=== PATIENT | male | born 1960 | race Caucasian/White ===

== ENCOUNTER → 2020-09-04 10:02 | Outpatient (CLI) | payer BC, SELFPAY ==
--- NOTE | ~2020-09-04 | XR_ITS ---
EXAMINATION: XR cervical spine 4-5V EXAM DATE: 09/04/2020 10:21 INDICATION: Cervicalgia. TECHNIQUE: Cervical spine frontal, lateral, lateral swimmers, and open-mouth odontoid projections. Submentovertex projection. There are no prior studies for comparison. FINDINGS: There is moderate disc disease at C5-6. Overall moderate cervical arthropathy. There is no evidence of acute cervical fracture. The odontoid process is intact. Pre-dens space is normal. Pr evertebral soft tissue is normal. There are no soft tissue abnormalities identified. The vertebra l bodies are aligned. IMPRESSION: Moderate cervical arthropathy and C5-C6 disc disease. Reviewed, dictated and finalized at location A.
== END ==
PROVIDERS: PCP Family Medicine; Visit Provider Family Medicine
DX: M50.322 Other cervical disc degeneration at C5-C6 level (principal)
CPT/HCPCS: 72050

== ENCOUNTER → 2021-02-03 17:07 | Outpatient (CLI) | payer BC, SELFPAY ==
--- NOTE | ~2021-02-03 | XR_ITS ---
XR knee RT min 4V 02/03/2021 17:27 Indication: Right knee pain Procedure: 4 views right knee Comparison: No prior studies for comparison. Findings: There is severe osteoarthritis of the right knee. Moderate joint effusion. No acute fractur e or traumatic malalignment. No foreign bodies. Impression: 1: Severe osteoarthritis of the right knee with moderate joint effusion. Reviewed, dictated and finalized at location A. Impression: 1: Severe osteoarthritis of the right knee with moderate joint effusion.
== END ==
PROVIDERS: PCP Family Medicine; Visit Provider Family Medicine
DX: M17.11 Unilateral primary osteoarthritis, right knee (principal)
CPT/HCPCS: 73564

== ENCOUNTER 2021-05-14 16:17 | Outpatient (CLI) | payer BC, SELFPAY ==
--- NOTE | ~2021-05-14 | CT_ITS ---
EXAMINATION: CT brain wo con DATE: 05/14/2021 16:39 INDICATION: Amnesia. Memory loss. TECHNIQUE: Computed tomography (CT) of the head was performed without intravenous contrast. The mA wa s adjusted according to patient size. Iterative reconstruction technique was employed. Exam dose: 68 1.00 mGy-cm total exam DLP. COMPARISON: None FINDINGS: There are bilateral carotid siphon internal carotid artery calcifications. There is nonspecific diminished attenuation of the cerebral white matter, likely due to chronic small vessel ischemic changes. No intracranial mass lesion or hemorrhage or cerebrovascular accident is evident. No midline shift or mass effect effect. Normal ventricular size. No subdural or epidural hematoma is detected. There is mild nodular mucoperiosteal thickening of the lower portion of both maxillary sinuses. There is patchy opacification of ethmoid air cells and mild soft tissue thickening of the frontoethmoid ar eas bilaterally. There is minimal mucoperiosteal thickening of the right sphenoid sinus. The mastoid air cells are normally developed and aerated. No fracture or bone destruction of the cranial vault. IMPRESSION: Cerebral atherosclerosis and chronic small vessel ischemic changes of the cerebral white matter No acute intracranial abnormality Paranasal sinus disease Reviewed, dictated and finalized at Location A. Reviewed, dictated and finalized at location A. T OF HOUSE MANAGER
== END 2021-05-14 16:18 | disposition home or self-care (01) ==
LOC: ANHIMG 16:22
PROVIDERS: PCP Family Medicine; Visit Provider Family Medicine
DX: R41.3 Other amnesia (principal); I67.2 Cerebral atherosclerosis
CPT/HCPCS: 70450

== ENCOUNTER 2021-07-30 07:16 | Outpatient (CLI) | payer BC, SELFPAY ==
--- NOTE | ~2021-07-30 | US_ITS ---
EXAMINATION: US carotid duplex BI DATE: 07/30/2021 10:33 INDICATION: Other amnesia. TECHNIQUE: Grayscale, color Doppler, and pulsed Doppler images of the cervical carotid arteries were obtained. The degree of vessel stenosis is placed in one of the following categories: normal, <50%, 5 0-69%, >=70% but less than near-occlusion, near-occlusion, or total occlusion. Note that percent sten osis relative to normal distal artery lumen diameter is indirectly measured from velocity measurement s as described by Kyaw, et al. Radiology 2003; 229:340-346. COMPARISON: None. FINDINGS: RIGHT: The right common carotid artery (CCA) peak systolic velocity (PSV) is 124 cm/s. The right internal ca rotid artery (ICA) PSV is 81 cm/s. The right ICA end-diastolic velocity (EDV) is 15 cm/s. The right I CA/CCA PSV ratio is 0.7. Grayscale and color Doppler images yield an estimate of <50% diameter reduct ion from plaque in the ICA. There is antegrade flow in the right vertebral artery. LEFT: The left CCA PSV is 108 cm/s. The left ICA PSV is 73 cm/s. The left ICA EDV is 22 cm/s. The left ICA/ CCA PSV ratio is 0.7. Grayscale and color Doppler images yield an estimate of <50% diameter reduction from plaque in the ICA. There is antegrade flow in the left vertebral artery. IMPRESSION: 1. <50% stenosis in the right internal carotid artery. 2. <50% stenosis in the left internal carotid artery. Reviewed, dictated and finalized at location A. ER OPERATOR
--- NOTE | 2021-07-30 07:42 | ECHO_ITS ---
Patient Info Name: Gordo Herbert Age: 61 years : 1960 Gender: Male Ht: 74 in Wt: 314 lbs BSA: 2.78 m2 HR: 86 bpm BP: 142 / 84 mmHg Technical Quality: Fair Exam Date: 07/30/2021 7:50 AM Exam Location: [facility] Patient Status: Outpatient Admit Date: 07/30/2021 Staff Ordering Physician: Salty Singh MD Human Capital Manager: Leighann Dinh RDCS Attending Provider: Salty Singh MD Exam Type: CA echo doppler color flow Study Info Indications R41.3 - OTHER AMNESIA Complete two-dimensional, color flow and Doppler transthoracic echocardiogram is performed. Summary 1. Complete two-dimensional, color flow and Doppler transthoracic echocardiogram is performed. 2. Left ventricular chamber dimension is normal. 3. Left ventricular systolic function is normal, estimated at 60-65%. 4. The left ventricular diastolic function is grade II diastolic dysfunction. 5. E/e' 8 is minimally elevated. 6. Global longitudinal strain is abnormal at -14.9%. 7. No pulmonary hypertension, estimated pulmonary arterial systolic pressure is 23 mmHg. Left Ventricle E/e' 8 is minimally elevated. Global longitudinal strain is abnormal at -14.9%. Left ventricular chamber dimension is normal. Left ventricular systolic function is normal, estimated at 60-65%. The left ventricular diastolic function is grade II diastolic dysfunction. Right Ventricle Right ventricular systolic function is normal and with normal TAPSE 2.3 cm. Right ventricular chamber dimension is normal. Left Atria Left atrial chamber dimension is normal. Right Atria Right atrial chamber dimension is normal. Aortic Valve The aortic valve is trileaflet. There is no aortic valve stenosis. There is no aortic valve regurgitation. Pulmonic Valve There is no pulmonic regurgitation. Mitral Valve There is no mitral valve stenosis. There is no mitral valve regurgitation. Tricuspid Valve There is no tricuspid valve regurgitation. No pulmonary hypertension, estimated pulmonary arterial systolic pressure is 23 mmHg. Pericardium/Pleural There is no pericardial effusion. Inferior Vena Cava Normal inferior vena cava with >50% collapse upon inspiration consistent with normal right atrial pressure, 5 mmHg. Aorta The aortic root size at the sinus of Valsalva is normal. Left Ventricular Outflow Tract Name Value Normal LVOT 2D LVOT Diameter 2.0 cm LVOT Doppler LVOT Peak Gradient 7 mmHg LVOT Mean Gradient 4 mmHg LVOT VTI 27 cm LVOT VTI/AV VTI Ratio 0.9 LVOT Stroke Volume 88 ml LVOT CO 6.7 l/min LVOT CI 2.4 l/min/m2 Pulmonic Valve Name Value Normal RVOT Doppler RVOT Peak Gradient
--- NOTE | 2021-07-30 11:15 | WPDNEUROLOGY ---
Neurology EEG Report General Information Date of Study: 07/30/21 TEST eeg DIAGNOSIS Amnesia CONDITION OF RECORDING awake drowsy and sleep EEG NUMBER [id number] CLINICAL HISTORY patient has been experiencing trouble with short-term memory EEG DESCRIPTION basic resting occipital frequency consists of well-organized medium voltage 9 to 10 hertz per 2nd alpha admixed with minimal amount of low-voltage 15 to 18 hertz per 2nd beta posteriorly. Low-voltage beta activity seen diffusely admixed with waxing and waning posterior alpha rhythm during drowsiness. Bihemispheric normal sleep activity seen during sleep. hyperventilation not done. Photic stimulation produced normal drive. Non paroxysmal. Nonfocal. Nonlateralizing. IMPRESSION Normal record
== END 2021-07-30 07:17 | disposition home or self-care (01) ==
PROVIDERS: PCP Family Medicine; Visit Provider Psychiatry & Neurology Neurology
DX: R41.3 Other amnesia (principal); I65.23 Occlusion and stenosis of bilateral carotid arteries
CPT/HCPCS: 93306; 93880; 95816

== ENCOUNTER 2021-10-22 09:29 | Emergency (ER) | payer BC, SELFPAY ==
--- NOTE | ~2021-10-22 | US_ITS ---
EXAMINATION: US venous doppler [facility] DATE: 10/22/2021 10:18 INDICATION: Left lower limb pain and swelling TECHNIQUE: Grayscale ultrasound images without and with compression and Doppler ultrasound images of the left lower extremity veins were obtained. COMPARISON: None. FINDINGS: The visualized portions of left common femoral vein, profunda (deep) femoral vein, femoral vein, popl iteal vein, peroneal veins, posterior tibial veins, lesser saphenous vein and greater saphenous vein outflow are patent. IMPRESSION: 1. No deep venous thrombosis in the left lower limb. Reviewed, dictated and finalized at location B.
[2021-10-22 09:32] VITALS: BP 167/74; PULSE 98; RESP 16; TEMP 35.9; O2SAT 98
--- NOTE | 2021-10-22 09:44 | ED.LOWEXIN ---
HPI - Extremity Injury (Lower) General Chief Complaint: Extremity Injury, Lower Stated Complaint: Left Leg Swelling Time Seen by Provider: 10/22/21 09:36 Source: patient Mode of arrival: ambulatory Limitations: no limitations History of Present Illness HPI Narrative: Patient is a 61-year-old male who presents to the ED with report of left lower leg swelling for the past 2 to 3 days. 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 He wears steel toed boots and noticed increased swelling in his left lower leg and calf 2 to 3 days ago. Swelling has since persisted and traveled into his foot and ankle. No significant swelling in his right lower leg. No known injury. No wounds. He does also report having intermittent shooting pains in his left medial posterior calf. He has not tried anything for his symptoms. He mentions the swelling seems to be worse while up on his feet and improves later in the day when resting. Denies a history of blood clots or congestive heart failure. Does have a history of asthma. Denies any worsening difficulty breathing or chest pain or pain with inspiration. Patient does take an aspirin 81 mg daily. Related Data Home Medications Medication Instructions Recorded Confirmed cyanocobalamin (vitamin B-12) 1,000 mcg PO DAILY 04/17/19 09/13/21 1,000 mcg tablet (Vitamin B-12) multivit,Ca,min-iron 8 mg-folic tablet PO 04/17/19 09/13/21 acid 200 mcg-lycopene 600 mcg tablet (Centrum Men) cholecalciferol (vitamin D3) 125 5,000 unit PO DAILY 09/17/19 09/13/21 mcg (5,000 unit) tablet fexofenadine 180 mg tablet 180 mg PO DAILY PRN Allergy 02/03/21 09/13/21 (Aspen Allergy) aspirin 81 mg tablet,delayed 81 mg PO DAILY 05/15/21 09/13/21 release (Adult Aspirin Regimen) Allergies Allergy/AdvReac Type Severity Reaction Status Date / Time No Known Allergies Allergy Verified 09/13/21 15:52 Review of Systems Review of Systems: CONSTITUTIONAL: Denies fever, chills. CARDIOVASCULAR: Reports left lower extremity swelling, extending to left foot and ankle. Denies chest pain, palpitations. RESPIRATORY: Denies cough, dyspnea, pain with inspiration. SKIN: Denies wounds. MUSCULOSKELETAL: Reports pain in left calf. Denies back pain. All systems reviewed & are unremarkable except as noted in HPI and below [facility] Past Medical History Medical History (Updated 10/22/21 @ 11:09 by Cindi Estrada PA-C) BMI 40.0-44.9, adult Body mass index (bmi) 39.0-39.9, adult (09/11/18) Cerebral atherosclerosis (~05/14/21) Chronic depression Chronic neck pain COVID-19 (~01/09/20) Encounter for prostate cancer screening Essential (primary) hypertension Exposure to COVID-19 virus Mixed hyperlipidemia LDL goal less than 70 05/15/2021 Osteoarthritis of right knee Pharyngitis Poor short-term memory normal EEG 07/30/2021 Right knee pain Severe osteoarthritis with joint effusion on x-ray 02/03/2021 Vitamin B12 deficiency anemia Vitamin D deficiency, unspecified Surgical History Surgical History (Updated 10/22/21 @ 09:56 by Cindi Estrada PA-C) No pertinent past surgical history Family History Family History Grandparent Cerebrovascular accident Sibling Cerebrovascular accident, Onset Age: 62 Father Family history of kidney disease, Onset Age: 84 Social History Social History Smoking status: Never smoker Alcohol intake: current Alcohol use details: occasionally Substance use: never Substance use type: does not use Additional occupation/education comments: [employer] Gender identity (if verbalized by the patient): Male Exam Narrative: GENERAL: Well appearing, obese, non-toxic, in no acute distress. HEAD: Normocephalic, atraumatic. NECK: Supple. No adenopathy, no masses. RESPIRATORY: Airway patent, res
--- NOTE | 2021-10-22 10:20 | PC.NURSE ---
Pt in US, will obtain bloodwork upon return.
--- NOTE | 2021-10-22 10:34 | PC.NURSE ---
pt back from US, resting on stretcher, labs collected.
[2021-10-22 10:35] LABS: Basophils Percent Auto 0.5 % (0.2-1.2); Eosinophils Absolute Auto 0.4 K/mm3 (0-0.3); Eosinophils Percent Auto 7.4 % (0-4.4); Hematocrit 37.3 % (42.0-52.0); Hemoglobin 12.3 g/dL (14.0-18.0); Immature Granulocyte Absolute 0.02 K/mm3 (0.00-0.031); Immature Granulocyte Percent A 0.4 % (0-0.5); Lymphocytes Absolute Auto 1.13 K/mm3 (0.9-3.2); Lymphocytes Percent Auto 19.9 % (18.3-44.2); Mean Corpuscular Hemoglobin 30.4 pg (26-34); Mean Corpuscular Volume 92.1 fl (80-100); Mean Platelet Volume 10.7 fl (7.4-10.4); Monocytes Absolute Auto 0.4 K/mm3 (0.1-0.6); Monocytes Percent Auto 7.4 % (2.6-8.5); Neutrophils Absolute Auto 3.7 K/mm3 (1.3-6.7); Neutrophils Percent Auto 64.4 % (45.5-73.1); Platelet Count Result 188 k/mm3 (150-375); Red Blood Count 4.05 M/mm3 (4.6-6.20); Red Cell Distribution Width 13.9 % (11.5-14.5); White Blood Count 5.7 K/mm3 (4.5-10.0)
[2021-10-22 10:46] LABS: INR 1.1
[2021-10-22 10:47] LABS: Alanine Aminotransferase 24 U/L (6-50); Albumin Level 3.9 g/dL (3.5-5.1); Alkaline Phosphatase 90 U/L (38-126); Anion Gap 5 mmol/L (8-16); Aspartate Amino Transferase 32 U/L (17-59); Bilirubin,Total 0.7 mg/dL (0.2-1.3); Blood Urea Nitrogen 17 mg/dL (9-20); Calcium 8.3 mg/dL (8.4-10.2); Carbon Dioxide 26 mmol/L (22-30); Chloride 106 mmol/L (98-107); Estimated CRCL calculation 113 ml/min; Estimated Glomerular Filt Rate > 60; Glucose 134 mg/dL (65-110); Partial Thromboplastin Time 28.7 SECONDS (22.3-36.8); Sodium 137 mmol/L (137-145)
[2021-10-22 10:56] LABS: NT Pro B Type Natriuretic Pept 74 pg/mL (5-100)
== END 2021-10-22 11:59 | disposition home or self-care (01) ==
PROVIDERS: Physician Assistant; Emergency Provider Emergency Medicine; PCP Family Medicine
DX: M79.89 Other specified soft tissue disorders (principal); J45.909 Unspecified asthma, uncomplicated; I10 Essential (primary) hypertension; E78.2 Mixed hyperlipidemia; M17.11 Unilateral primary osteoarthritis, right knee; D51.9 Vitamin B12 deficiency anemia, unspecified; E55.9 Vitamin D deficiency, unspecified; Z86.16 Personal history of COVID-19; Z79.82 Long term (current) use of aspirin
CPT/HCPCS: 36415; 80053; 83880; 85025; 85610; 85730; 93971; 99284

== ENCOUNTER 2021-12-24 16:28 | Emergency (ER) | payer BC, SELFPAY ==
--- NOTE | 2021-12-24 17:07 | PC.NURSE ---
Pt reports feels fine and is going to go home and will return if worsening or feels bad.
== END 2021-12-24 17:07 | disposition left against medical advice (07) ==
PROVIDERS: PCP Family Medicine
DX: Z53.21 Procedure and treatment not carried out due to patient leaving prior to being seen by health care provider (principal)
CPT/HCPCS: 99199

== ENCOUNTER 2021-12-28 15:30 | Outpatient (RCR) | payer BC, SELFPAY ==
--- NOTE | 2021-11-19 10:22 | PTOPEVAL ---
PHYSICAL THERAPY EVALUATION AND PLAN OF CARE 11-19-21 Thank you for referring Gordo Herbert to [facility]. He is scheduled to be seen for therapy? 2 x/week for 4 weeks. Please review, sign, date and return this plan of care YE. I agree with and certify that the following plan of care is medically necessary. Referring Physician Date Attending Provider: Gabriel Kate MD Outpatient Past Medical History Past Medical History Source of Past Medical History Patient Neurological History Hx Neurological Disorders No Significant History Cardiovascular History Hx Hypertension Yes: meds Respiratory History Hx Asthma Yes: inhaler Gastrointestinal History Hx Gastrointestinal Disorders No Significant History Musculoskeletal History Hx Arthritis Yes: hips and knees Hx Orthopedic Surgery Yes: R rotator cuff repair Endocrine History Hx Endocrine Disorders No Significant History Other History Hx Other Medical Conditions Yes: obesity Evaluation Information Problem Diagnosis edema in R and L ankle Onset September 2021 Prior Level of Function Activity Level (Last 3 Months) Occupation [employer]--physical work, 8 hour shift, stand on concrete Pain Assessment Timing of Pain Assessment Assessment Pain Scale Pain Scale Used Numeric (1 - 10) Self Report Pain Assessment Left Leg(s) Reported Pain Level 0 Pain Description Aching Pain Frequency Chronic,Intermittent Other Pain Description distal medial lower leg, above ankle Lowest Pain Intensity 0 Greatest Pain Intensity 3 Pain Aggravating Factors Walking Interventions Used Interventions Used By Clinicians Education Gross Lower Extremity Range of Motion ankle ROM: R DF 0', PF 40', Comments inversion 25', eversion 15' L DF 0,; PF 40', inversion 20' , eversion 25'- no pain increase with ROM; sitting knee R 0-100'/ L 0-95' supine B hip flexion 95', IR 10', ER 40'; tends to hold LE 's in hip ER position Gross Lower Extremity Strength functional strength testing: - single leg standing R 3/ L 2 seconds- unstable, did not report pain increase- unsteady /balance - standing B PF 8 reps with slight heel lift off floor - sitting: L big toe fl
--- NOTE | 2021-12-03 10:13 | PCPTNOTE ---
Patient called & cancelled scheduled appointment this date due to having to work.
--- NOTE | 2021-12-09 17:30 | PCPTNOTE ---
Patient called & cancelled scheduled appointment for 12/10/21 due to having to work.
--- NOTE | 2021-12-14 15:00 | PCPTNOTE ---
today's appt had to be canceled due to therapist illness.
--- NOTE | 2021-12-16 09:05 | PCPTNOTE ---
pt called and canceled reevaluation due to work schedule; rescheduled for 2 wks out due to availability of appt times for pt
--- NOTE | 2021-12-28 16:02 | PTOPEVAL ---
PHYSICAL THERAPY DISCHARGE REPORT 12-28-21 Refer to the clinical summary below, for his status today, compared to the initial evaluation. The goals were achieved. Discharge PT services. Thank you for referring Gordo Herbert to [facility] Please review, sign, date and return this Discharge report YE. I agree with and certify that the following plan of care is medically necessary. Referring Physician Date Attending Provider: Gabriel Kate MD Subjective Information Gordo reports: had contact Query Text:As Reported By Patient/ dermatitis in L leg from new Family laundry detergent--have 2 more days of steroids left; doing OK with the stocking and no problems wearing it; want to try to go without the stocking Pain Assessment Pain Scale Pain Scale Used Numeric (1 - 10) Self Report Pain Assessment Left Leg(s) Reported Pain Level 0 Lymphedema Evaluation Skin Inspection Location Left Lower Extremity Tissue Texture Normal Lymphedema Stage I Skin Inspection Comment good skin color over L LE with slight redness over anterior raza; no edema over toes and dorsum of foot, --------- to dept with Mediven Plus 20- 30 mmHg compression garment, size V, silicone top band, calf high; indep don/doffing garment; pt reports his leg is staying small and wants to try to go without it; discussed try to go without it and see how his leg responds, using measurements at ankle and calf to assess if changes without the garment; reinforced continue to do leg exercises and self MLD to keep the lymph fluid moving; he voiced and demo understanding; LE Circumferential Measurement Left LE Lymphedema Side Left Metatarsal Heads (cm) 26 Figure 8 of Ankle (cm) 59 8 cm From Bottom of Foot (cm) 28 12 cm From Bottom of Foot (cm) 26 16 cm From Bottom of Foot (cm) 26 20 cm From Bottom of Foot (cm) 28.4 24 cm From Bottom of Foot (cm) 30.2 28 cm From Bottom of Foot (cm) 33.6 32 cm From Bottom of Foot (cm)
== END 2021-12-29 09:58 | disposition home or self-care (01) ==
LOC: ANHPT 15:30
PROVIDERS: PCP Family Medicine; Visit Provider Family Medicine
DX: M25.471 Effusion, right ankle (principal); M25.472 Effusion, left ankle
CPT/HCPCS: 97140; 97162

== ENCOUNTER 2022-01-19 16:23 | Emergency (ER) | payer BC, SELFPAY ==
[2022-01-19 16:27] VITALS: BP 144/63; PULSE 105; RESP 14; TEMP 36.4; O2SAT 99
[2022-01-19 16:49] LABS: Basophils Percent Auto 0.6 % (0.2-1.2); Eosinophils Absolute Auto 0.6 K/mm3 (0-0.3); Eosinophils Percent Auto 8.3 % (0-4.4); Hematocrit 31.4 % (42.0-52.0); Hemoglobin 10.4 g/dL (14.0-18.0); Immature Granulocyte Absolute 0.01 K/mm3 (0.00-0.031); Immature Granulocyte Percent A 0.1 % (0-0.5); Lymphocytes Absolute Auto 1.38 K/mm3 (0.9-3.2); Lymphocytes Percent Auto 19.1 % (18.3-44.2); Mean Corpuscular HGB Conc 33.1 g/dl (32-36); Mean Corpuscular Hemoglobin 30.6 pg (26-34); Mean Corpuscular Volume 92.4 fl (80-100); Monocytes Absolute Auto 0.6 K/mm3 (0.1-0.6); Monocytes Percent Auto 8.6 % (2.6-8.5); Neutrophils Absolute Auto 4.6 K/mm3 (1.3-6.7); Neutrophils Percent Auto 63.3 % (45.5-73.1); Platelet Count Result 257 k/mm3 (150-375); Red Cell Distribution Width 14.5 % (11.5-14.5); White Blood Count 7.2 K/mm3 (4.5-10.0)
[2022-01-19 17:00] LABS: Alanine Aminotransferase 29 U/L (6-50); Albumin Level 4.2 g/dL (3.5-5.1); Alkaline Phosphatase 80 U/L (38-126); Anion Gap 10 mmol/L (8-16); Aspartate Amino Transferase 38 U/L (17-59); Bilirubin,Total 0.5 mg/dL (0.2-1.3); Blood Urea Nitrogen 23 mg/dL (9-20); Calcium 9.2 mg/dL (8.4-10.2); Carbon Dioxide 25 mmol/L (22-30); Chloride 100 mmol/L (98-107); Estimated CRCL calculation 112 ml/min; Estimated Glomerular Filt Rate > 60; Glucose 98 mg/dL (65-110); Potassium 3.9 mmol/L (3.4-5.0); Sodium 135 mmol/L (137-145)
[2022-01-19 17:01] LABS: INR 1.1; Prothrombin Time 13.8 Seconds (11.1-14.7)
[2022-01-19 17:02] LABS: Partial Thromboplastin Time 27.1 SECONDS (22.3-36.8)
[2022-01-19 17:15] VITALS: BP 129/73; PULSE 95; RESP 18; O2SAT 100
--- NOTE | 2022-01-19 17:42 | ED.GIBLEED ---
HPI - GI Bleed General Chief complaint: GI Bleed Stated complaint: black stool Time Seen by Provider: 01/19/22 17:17 Source: patient Mode of arrival: ambulatory Limitations: no limitations History of Present Illness HPI Narrative: 61-year-old male presents today with complaints of 3 days of dark stool. Patient denies any abdominal pain, nausea, vomiting, diarrhea, dizziness, chest pain, palpitations. Patient states sometimes his stomach grumbles then he has a bowel movement is fine. Patient's last colonoscopy was 2 to 3 years ago he states that it was in [place]. Patient recently saw his primary doctor. Related Data Home Medications Medication Instructions Recorded Confirmed cyanocobalamin (vitamin B-12) 1,000 mcg PO DAILY 04/17/19 11/01/21 1,000 mcg tablet (Vitamin B-12) multivit,Ca,min-iron 8 mg-folic tablet PO 04/17/19 11/01/21 acid 200 mcg-lycopene 600 mcg tablet (Centrum Men) cholecalciferol (vitamin D3) 125 5,000 unit PO DAILY 09/17/19 11/01/21 mcg (5,000 unit) tablet fexofenadine 180 mg tablet 180 mg PO DAILY PRN Allergy 02/03/21 11/01/21 (Aspen Allergy) aspirin 81 mg tablet,delayed 81 mg PO DAILY 05/15/21 11/01/21 release (Adult Aspirin Regimen) Allergies Allergy/AdvReac Type Severity Reaction Status Date / Time No Known Allergies Allergy Verified 01/19/22 16:24 Review of Systems Review of Systems: CONSTITUTIONAL: Denies fever, chills, or sweats. EYES: Denies visual changes, redness, or discharge. ENT: Denies rhinorrhea, congestion, sore throat, or otalgia. CARDIOVASCULAR: Denies chest pain, palpitations, or edema. RESPIRATORY: Denies cough or dyspnea. GASTROINTESTINAL: Dark stool. Denies abdominal pain, nausea, vomiting, or diarrhea. GENITOURINARY: Denies dysuria or hematuria. SKIN: Denies rash or itching. MUSCULOSKELETAL: Denies back pain, joint pain, or myalgia. NEUROLOGIC: Denies headache, numbness, dizziness, or weakness. PSYCHIATRIC: Denies anxiety or depression. [facility] Past Medical History Medical History BMI 40.0-44.9, adult Body mass index (bmi) 39.0-39.9, adult (09/11/18) Cerebral atherosclerosis (~05/14/21) Chronic depression Chronic neck pain COVID-19 (~01/09/20) Encounter for prostate cancer screening Essential (primary) hypertension Exposure to COVID-19 virus Mixed hyperlipidemia LDL goal less than 70 05/15/2021 Obesity (BMI 30-39.9) Osteoarthritis of right knee Pharyngitis Poor short-term memory normal EEG 07/30/2021 Right knee pain Severe osteoarthritis with joint effusion on x-ray 02/03/2021 Vitamin B12 deficiency anemia Vitamin D deficiency, unspecified Surgical History Surgical History No pertinent past surgical history Family History Family History Grandparent Cerebrovascular accident Sibling Cerebrovascular accident, Onset Age: 62 Father Family history of kidney disease, Onset Age: 84 Social History Social History Smoking status: Former smoker ( quit smoking 2014.) Alcohol intake: current Alcohol use details: occasionally Substance use: never Substance use type: does not use Additional occupation/education comments: [employer] Gender identity (if verbalized by the patient): Male Exam Narrative: GENERAL: Well-appearing, well-nourished, and in no acute distress. HEAD: Normocephalic, atraumatic. EYES: PERRLA and EOMI. ENT: Nares clear, no rhinorrhea or epistaxis. Mucous membranes moist. Oropharynx without tonsillar hypertrophy exudate or other lesions. Bilateral TMs pearly coker nonbulging NECK: Supple. No adenopathy or masses. No carotid bruits or JVD CHEST: Clear to auscultation. No respiratory distress. No wheezes rales or rhonchi HEART: Regular rate and rhythm. No murmur
[2022-01-19 18:20] VITALS: BP 132/77; PULSE 90; RESP 20; O2SAT 100
== END 2022-01-19 18:25 | disposition home or self-care (01) ==
LOC: ANHED 18:14
PROVIDERS: Emergency Medicine; Emergency Provider Nurse Practitioner Family; PCP Family Medicine
DX: K92.2 Gastrointestinal hemorrhage, unspecified (principal); I10 Essential (primary) hypertension; E78.2 Mixed hyperlipidemia; I67.2 Cerebral atherosclerosis; D51.9 Vitamin B12 deficiency anemia, unspecified; E55.9 Vitamin D deficiency, unspecified; M17.11 Unilateral primary osteoarthritis, right knee; E66.9 Obesity, unspecified; Z68.38 Body mass index [BMI] 38.0-38.9, adult; Z86.16 Personal history of COVID-19; Z79.82 Long term (current) use of aspirin; Z87.891 Personal history of nicotine dependence
CPT/HCPCS: 36415; 80053; 85025; 85610; 85730; 86850; 86900; 86901; 99283

== ENCOUNTER 2022-01-24 00:47 | Day surgery (SDC) | payer BC, SELFPAY ==
[2022-01-21 09:27] VITALS: BMI 36.9
--- NOTE | 2022-01-24 12:11 | PM.HPGS ---
History of Present Illness History of Present Illness Consent: Risks, benefits, and alternatives have been discussed and questions answered. Patient agrees to proceed with procedure. Chief complaint: GI bleed Narrative: Gordo Herbert is a 61 year old male Who had black tarry stools for 3 consecutive days. He presented to the emergency room last week. His hemoglobin, which was 13.6 earlier this month was down to 10.4. He denies abdominal pain or nausea but does sometimes have rumbling in his stomach. Review of Systems Review of Systems: All systems reviewed & are unremarkable except as noted in HPI and below PMFSH Past Medical History Medical History BMI 40.0-44.9, adult Body mass index (bmi) 39.0-39.9, adult (09/11/18) Cerebral atherosclerosis (~05/14/21) Chronic depression Chronic neck pain COVID-19 (~01/09/20) Encounter for prostate cancer screening Essential (primary) hypertension Exposure to COVID-19 virus GI bleeding Mixed hyperlipidemia LDL goal less than 70 05/15/2021 Obesity (BMI 30-39.9) Osteoarthritis of right knee Pharyngitis Poor short-term memory normal EEG 07/30/2021 Right knee pain Severe osteoarthritis with joint effusion on x-ray 02/03/2021 Vitamin B12 deficiency anemia Vitamin D deficiency, unspecified Surgical History Surgical History No pertinent past surgical history Family History Family History Grandparent Cerebrovascular accident Sibling Cerebrovascular accident, Onset Age: 62 Father Family history of kidney disease, Onset Age: 84 Social History Social History Smoking packs per day: 1 Smoking cigarettes per day: 20.0 Years smoked: 37 Smoking pack-years: 37.00 Smoking status: Former smoker Tobacco type: cigarettes Alcohol intake: current Alcohol use details: occasional Substance use: never Substance use type: does not use Living arrangements: with family Additional occupation/education comments: [employer] Gender identity (if verbalized by the patient): Male Spiritual care concerns: No Meds Home Medications and Allergies Home Medications Medication Instructions Recorded Confirmed Type cyanocobalamin (vitamin B-12) 1,000 mcg PO DAILY 04/17/19 01/21/22 History 1,000 mcg tablet (Vitamin B-12) multivit,Ca,min-iron 8 mg-folic 1 tablet PO DAILY 04/17/19 01/21/22 History acid 200 mcg-lycopene 600 mcg tablet (Centrum Men) cholecalciferol (vitamin D3) 125 5,000 unit PO DAILY 09/17/19 01/21/22 History mcg (5,000 unit) tablet budesonide-formoterol HFA 160 2 puff inhalation Q12H #10.2 grams 09/07/20 01/21/22 Rx mcg-4.5 mcg/actuation aerosol inhaler (Symbicort) fexofenadine 180 mg tablet 180 mg PO DAILY PRN Allergy 02/03/21 01/21/22 History (Aspen Allergy) aspirin 81 mg tablet,delayed 81 mg PO DAILY 05/15/21 01/21/22 History release (Adult Aspirin Regimen) atorvastatin 40 mg tablet 40 mg PO DAILY #90 tabs 05/15/21 01/21/22 Rx albuterol sulfate 90 mcg/actuation 2 puff inhalation Q4H PRN 07/07/21 01/21/22 Rx aerosol inhaler (Ventolin HFA) shortness of breath or wheezing #8.5 grams tamsulosin 0.4 mg capsule 0.4 mg PO DAILY #90 caps 07/12/21 01/21/22 Rx escitalopram oxalate 10 mg tablet 10 mg PO . q.h.s. #90 tabs 07/22/21 01/21/22 Rx (Lexapro) lisinopril 10 mg tablet 10 mg PO DAILY #90 tabs 10/27/21 01/21/22 Rx budesonide 0.25 mg/2 mL suspension See Rx Instructions .Route 12/14/21 01/21/22 Rx for nebulization .COMPLEX #120 mL pantoprazole 20 mg tablet,delayed 20 mg PO QAM #30 tabs 01/19/22 01/21/22 Rx release (Protonix) Allergies Allergy/AdvReac Type Severity Reaction Status Date / Time No Known Allergies Allergy Verified 01/24/22 12:13 Exam Const: Ge
[2022-01-24 12:15] VITALS: BP 146/66; PULSE 82; RESP 18; TEMP 36.7; O2SAT 98
[2022-01-24] MEDS: LACTATED RINGERS 1,000 ML 150 ML IV CONT (12:30)
--- NOTE | 2022-01-24 12:45 | WPDANESEPPF ---
Anes - Initial Pre Proc Eval Procedure: Operation Date: 01/24/22 13:30 Proposed Procedures p Esophagogastroduodenoscopy & Colonoscopy - Marcus Dale MD Date/Time: 01/24/22 12:45 Surgeon: Marcus Dale MD Pre Op Diagnosis: GI bleed Patient Data Age: 61 Gender: M Height: 1.91 m Weight: 133.5 kg Last Vital Signs Temp 36.7 C 01/24/22 12:15 Pulse 82 01/24/22 12:15 Resp 18 01/24/22 12:15 BP 146/66 H 01/24/22 12:15 Pulse Ox 98 01/24/22 12:15 O2 Del Method Room Air 01/24/22 12:15 Allergies Allergy/AdvReac Type Severity Reaction Status Date / Time No Known Allergies Allergy Verified 01/24/22 12:13 Home Medications Medication Instructions Recorded Confirmed Type cyanocobalamin (vitamin B-12) 1,000 mcg PO DAILY 04/17/19 01/24/22 History 1,000 mcg tablet (Vitamin B-12) multivit,Ca,min-iron 8 mg-folic 1 tablet PO DAILY 04/17/19 01/24/22 History acid 200 mcg-lycopene 600 mcg tablet (Centrum Men) cholecalciferol (vitamin D3) 125 5,000 unit PO DAILY 09/17/19 01/24/22 History mcg (5,000 unit) tablet budesonide-formoterol HFA 160 2 puff inhalation Q12H #10.2 grams 09/07/20 01/24/22 Rx mcg-4.5 mcg/actuation aerosol inhaler (Symbicort) fexofenadine 180 mg tablet 180 mg PO DAILY PRN Allergy 02/03/21 01/24/22 History (Aspen Allergy) aspirin 81 mg tablet,delayed 81 mg PO DAILY 05/15/21 01/24/22 History release (Adult Aspirin Regimen) atorvastatin 40 mg tablet 40 mg PO DAILY #90 tabs 05/15/21 01/24/22 Rx albuterol sulfate 90 mcg/actuation 2 puff inhalation Q4H PRN 07/07/21 01/24/22 Rx aerosol inhaler (Ventolin HFA) shortness of breath or wheezing #8.5 grams tamsulosin 0.4 mg capsule 0.4 mg PO DAILY #90 caps 07/12/21 01/24/22 Rx escitalopram oxalate 10 mg tablet 10 mg PO . q.h.s. #90 tabs 07/22/21 01/24/22 Rx (Lexapro) lisinopril 10 mg tablet 10 mg PO DAILY #90 tabs 10/27/21 01/24/22 Rx budesonide 0.25 mg/2 mL suspension See Rx Instructions .Route 12/14/21 01/24/22 Rx for nebulization .COMPLEX #120 mL pantoprazole 20 mg tablet,delayed 20 mg PO QAM #30 tabs 01/19/22 01/24/22 Rx release (Protonix) Patient hx anesthesia problems: none Family hx anesthesia problems: none Results Review: All pre-operative results and documents have been reviewed as part of the pre-operative evaluation. [facility] Past Medical History Medical History BMI 40.0-44.9, adult Body mass index (bmi) 39.0-39.9, adult (09/11/18) Cerebral atherosclerosis (~05/14/21) Chronic depression Chronic neck pain COVID-19 (~01/09/20) Encounter for prostate cancer screening Essential (primary) hypertension Exposure to COVID-19 virus GI bleeding Mixed hyperlipidemia LDL goal less than 70 05/15/2021 Obesity (BMI 30-39.9) Osteoarthritis of right knee Pharyngitis Poor short-term memory normal EEG 07/30/2021 Right knee pain Severe osteoarthritis with joint effusion on x-ray 02/03/2021 Vitamin B12 deficiency anemia Vitamin D deficiency, unspecified Surgical History Surgical History No pertinent past surgical history Family History Family History Grandparent Cerebrovascular accident Sibling Cerebrovascular accident, Onset Age: 62 Father Family history of kidney disease, Onset Age: 84 Social History Social History Smoking packs per day: 1 Smoking cigarettes per day: 20.0 Years smoked: 37 Smoking pack-years: 37.00 Smoking status: Former smoker Tobacco type: cigarettes Alcohol intake: current Alcohol use details: occasional Substance use: never Substance use type: does not use Living arrangements: with family Additional occupation/education comments: [employer] Gender identity (if verbalized by the patient): Yuriy
[2022-01-24] MEDS: BENZOCAINE (*SP) 60 ML SPRAY CAN (HURRICAINE) 1 SPRAY MUCOUS MEM (12:53)
--- NOTE | 2022-01-24 13:04 | SUR.OPER ---
egd ended at 1256, colonoscopy start at 1305
[2022-01-24 13:17] VITALS: BP 96/59; PULSE 75; RESP 17; O2SAT 99
[2022-01-24 13:27] VITALS: BP 110/65; PULSE 77; RESP 20; O2SAT 99
[2022-01-24 13:37] VITALS: BP 123/70; PULSE 82; RESP 17; O2SAT 96
== END 2022-01-24 13:53 | disposition home or self-care (01) ==
PROVIDERS: PCP Family Medicine; Visit Provider Internal Medicine Gastroenterology
PROC: 0DJ08ZZ Inspection of Upper Intestinal Tract, Via Natural or Artificial Opening Endoscopic (ICD-10-PCS; CPT 43235; principal; 2022-01-24 13:30)
DX: K92.1 Melena (principal); K57.30 Diverticulosis of large intestine without perforation or abscess without bleeding; K21.9 Gastro-esophageal reflux disease without esophagitis; K26.9 Duodenal ulcer, unspecified as acute or chronic, without hemorrhage or perforation; K29.80 Duodenitis without bleeding; Z79.82 Long term (current) use of aspirin; Z79.51 Long term (current) use of inhaled steroids; Z86.16 Personal history of COVID-19; I10 Essential (primary) hypertension; E78.2 Mixed hyperlipidemia; M19.90 Unspecified osteoarthritis, unspecified site; E55.9 Vitamin D deficiency, unspecified; D51.9 Vitamin B12 deficiency anemia, unspecified; Z87.891 Personal history of nicotine dependence; E66.9 Obesity, unspecified; Z68.36 Body mass index [BMI] 36.0-36.9, adult
CPT/HCPCS: 45378; 43239; 87081; 88305; J2704; J7120

== ENCOUNTER 2022-03-14 01:02 | Day surgery (SDC) | payer BC, SELFPAY ==
[2022-02-24 14:20] VITALS: BMI 38.5
--- NOTE | 2022-02-24 14:21 | PC.NURSE ---
Pt states he went over his health history and medication information before his EGD & Colonoscopy he had 6 weeks ago. States there has been no changes. Went over arrival time/procedure time, NPO after midnight, and medications. Verbalizes understanding. No further questions.
--- NOTE | 2022-03-12 10:07 | PM.HPGS ---
History of Present Illness History of Present Illness Consent: Risks, benefits, and alternatives have been discussed and questions answered. Patient agrees to proceed with procedure. Chief complaint: duodenal ulcer Narrative: Gordo Herbert is a 61 year old male Who is here for follow-up of a duodenal ulcer. Two months ago he was hospitalized with gastrointestinal bleeding. A duodenal ulcer was found. He also was positive for H pylori. He took a 14 day course of triple therapy for that. At that time he also was found have Barretts esophagus. Review of Systems Review of Systems: All systems reviewed & are unremarkable except as noted in HPI and below PMFSH Past Medical History Medical History BMI 40.0-44.9, adult Body mass index (bmi) 39.0-39.9, adult (09/11/18) Cerebral atherosclerosis (~05/14/21) Chronic depression Chronic neck pain COVID-19 (~01/09/20) Duodenal ulcer (01/24/22) EGD on 01/24/2022 with recheck in 6 weeks Duodenitis (01/24/22) Encounter for prostate cancer screening Essential (primary) hypertension Exposure to COVID-19 virus GI bleeding colonoscopy on 01/24/2022 with no evidence of acute bleeding with diverticulosis with no perforation. Recheck in 5 years. Mixed hyperlipidemia LDL goal less than 70 05/15/2021 Nonerosive esophageal reflux disease (01/24/22) EGD on 01/24/2022 with duodenal ulcer and duodenitis and nonerosive reflux disease with recheck EGD in 6 weeks Obesity (BMI 30-39.9) Osteoarthritis of right knee Pharyngitis Poor short-term memory normal EEG 07/30/2021 Right knee pain Severe osteoarthritis with joint effusion on x-ray 02/03/2021 Vitamin B12 deficiency anemia Vitamin D deficiency, unspecified Surgical History Surgical History No pertinent past surgical history Family History Family History Grandparent Cerebrovascular accident Sibling Cerebrovascular accident, Onset Age: 62 Father Family history of kidney disease, Onset Age: 84 Social History Social History Smoking packs per day: 1 Smoking cigarettes per day: 20.0 Years smoked: 37 Smoking pack-years: 37.00 Smoking status: Former smoker Tobacco type: cigarettes Alcohol intake: current Alcohol use details: occasional Substance use: never Substance use type: does not use Living arrangements: with family Additional occupation/education comments: [employer] Gender identity (if verbalized by the patient): Male Spiritual care concerns: No Meds Home Medications and Allergies Home Medications Medication Instructions Recorded Confirmed Type cyanocobalamin (vitamin B-12) 1,000 mcg PO DAILY 04/17/19 02/24/22 History 1,000 mcg tablet (Vitamin B-12) multivit,Ca,min-iron 8 mg-folic 1 tablet PO DAILY 04/17/19 02/24/22 History acid 200 mcg-lycopene 600 mcg tablet (Centrum Men) cholecalciferol (vitamin D3) 125 5,000 unit PO DAILY 09/17/19 02/24/22 History mcg (5,000 unit) tablet budesonide-formoterol HFA 160 2 puff inhalation Q12H #10.2 grams 09/07/20 02/24/22 Rx mcg-4.5 mcg/actuation aerosol inhaler (Symbicort) fexofenadine 180 mg tablet 180 mg PO DAILY PRN Allergy 02/03/21 02/24/22 History (Aspen Allergy) aspirin 81 mg tablet,delayed 81 mg PO DAILY 05/15/21 02/24/22 History release (Adult Aspirin Regimen) atorvastatin 40 mg tablet 40 mg PO DAILY #90 tabs 05/15/21 02/24/22 Rx albuterol sulfate 90 mcg/actuation 2 puff inhalation Q4H PRN 07/07/21 02/24/22 Rx aerosol inhaler (Ventolin HFA) shortness of breath or wheezing #8.5 grams tamsulosin 0.4 mg capsule 0.4 mg PO DAILY #90 caps 07/12/21 02/24/22 Rx lisinopril 10 mg tablet 10 mg PO DAILY #90 tabs 10/27/21 02/24/22 Rx budesonide 0.25 mg/2 mL suspension See Rx Instruct
[2022-03-14 09:37] VITALS: BMI 38.5
--- NOTE | 2022-03-14 09:38 | WPDANESEPPF ---
Anes - Initial Pre Proc Eval Procedure: Operation Date: 03/14/22 10:30 Proposed Procedures p Esophagogastroduodenoscopy - Marcus Dale MD Date/Time: 03/14/22 09:38 Surgeon: Marcus Dale MD Pre Op Diagnosis: duodenal ulcer Patient Data Age: 61 Gender: M Height: 1.88 m Weight: 136 kg Allergies Allergy/AdvReac Type Severity Reaction Status Date / Time No Known Allergies Allergy Verified 03/14/22 09:35 Home Medications Medication Instructions Recorded Confirmed Type cyanocobalamin (vitamin B-12) 1,000 mcg PO DAILY 04/17/19 02/24/22 History 1,000 mcg tablet (Vitamin B-12) multivit,Ca,min-iron 8 mg-folic 1 tablet PO DAILY 04/17/19 02/24/22 History acid 200 mcg-lycopene 600 mcg tablet (Centrum Men) cholecalciferol (vitamin D3) 125 5,000 unit PO DAILY 09/17/19 02/24/22 History mcg (5,000 unit) tablet budesonide-formoterol HFA 160 2 puff inhalation Q12H #10.2 grams 09/07/20 02/24/22 Rx mcg-4.5 mcg/actuation aerosol inhaler (Symbicort) fexofenadine 180 mg tablet 180 mg PO DAILY PRN Allergy 02/03/21 02/24/22 History (Aspen Allergy) aspirin 81 mg tablet,delayed 81 mg PO DAILY 05/15/21 02/24/22 History release (Adult Aspirin Regimen) atorvastatin 40 mg tablet 40 mg PO DAILY #90 tabs 05/15/21 02/24/22 Rx albuterol sulfate 90 mcg/actuation 2 puff inhalation Q4H PRN 07/07/21 02/24/22 Rx aerosol inhaler (Ventolin HFA) shortness of breath or wheezing #8.5 grams tamsulosin 0.4 mg capsule 0.4 mg PO DAILY #90 caps 07/12/21 02/24/22 Rx lisinopril 10 mg tablet 10 mg PO DAILY #90 tabs 10/27/21 02/24/22 Rx budesonide 0.25 mg/2 mL suspension See Rx Instructions .Route 12/14/21 02/24/22 Rx for nebulization .COMPLEX #120 mL amoxicillin 500 mg tablet 1,000 mg PO BID #56 tabs 01/24/22 02/24/22 Rx metronidazole 500 mg tablet 500 mg PO BID #28 tabs 01/24/22 02/24/22 Rx escitalopram oxalate 10 mg tablet 10 mg PO . q.h.s. #90 tabs 03/01/22 03/14/22 Rx (Lexapro) pantoprazole 40 mg tablet,delayed 40 mg PO DAILY #90 tabs 03/15/22 Rx release Patient hx anesthesia problems: none Family hx anesthesia problems: none Results Review: All pre-operative results and documents have been reviewed as part of the pre-operative evaluation. [facility] Past Medical History Medical History (Updated 03/16/22 @ 22:03 by Gabriel Kate MD) Adame's esophagus with esophagitis (03/14/22) EGD 03/14/2022 with biopsy showing Adame's esophagitis. long-term treatment with Protonix 40 mg daily. BMI 40.0-44.9, adult Body mass index (bmi) 39.0-39.9, adult (09/11/18) Cerebral atherosclerosis (~05/14/21) Chronic depression Chronic neck pain COVID-19 (~01/09/20) Duodenal ulcer (01/24/22) EGD on 01/24/2022 with recheck in 6 weeks Duodenitis (01/24/22) Encounter for prostate cancer screening Essential (primary) hypertension Exposure to COVID-19 virus GI bleeding colonoscopy on 01/24/2022 with no evidence of acute bleeding with diverticulosis with no perforation. Recheck in 5 years. Mixed hyperlipidemia LDL goal less than 70 05/15/2021 Nonerosive esophageal reflux disease (01/24/22) EGD on 01/24/2022 with duodenal ulcer and duodenitis and nonerosive reflux disease with recheck EGD in 6 weeks Obesity (BMI 30-39.9) Osteoarthritis of right knee Pharyngitis Poor short-term memory normal EEG 07/30/2021 Right knee pain Severe osteoarthritis with joint effusion on x-ray 02/03/2021 Vitamin B12 deficiency anemia Vitamin D deficiency, unspecified Surgical History Surgical History No pertinent past surgical history Family History Family History Grandparent Cerebrovascular accident Sibling Cerebrovascular accident, Onset Age: 62 Father Family history of kidney disease, Onset Age: 84 Social History Social History (Reviewed 03/14/22 @ 09:49 by Marcus Dale M
[2022-03-14 09:40] VITALS: BP 142/88; PULSE 73; RESP 20; TEMP 36.3; O2SAT 98
[2022-03-14] MEDS: LACTATED RINGERS 1,000 ML 150 ML IV CONT (09:42)
[2022-03-14 10:26] VITALS: BP 113/70; PULSE 75; RESP 14; O2SAT 94
[2022-03-14 10:36] VITALS: BP 106/67; PULSE 72; RESP 19; O2SAT 96
[2022-03-14 10:46] VITALS: BP 133/83; PULSE 79; RESP 21; O2SAT 98
== END 2022-03-14 10:52 | disposition home or self-care (01) ==
PROVIDERS: PCP Family Medicine; Visit Provider Internal Medicine Gastroenterology
PROC: 0DJ08ZZ Inspection of Upper Intestinal Tract, Via Natural or Artificial Opening Endoscopic (ICD-10-PCS; CPT 43235; principal; 2022-03-14 10:30)
DX: K26.9 Duodenal ulcer, unspecified as acute or chronic, without hemorrhage or perforation (principal); K22.70 Barrett's esophagus without dysplasia; Z79.82 Long term (current) use of aspirin; Z79.84 Long term (current) use of oral hypoglycemic drugs; F32.A Depression, unspecified; I10 Essential (primary) hypertension; E78.2 Mixed hyperlipidemia; E55.9 Vitamin D deficiency, unspecified; D51.9 Vitamin B12 deficiency anemia, unspecified; Z87.891 Personal history of nicotine dependence; E66.9 Obesity, unspecified; Z68.38 Body mass index [BMI] 38.0-38.9, adult
CPT/HCPCS: 43239; 87081; 88305; J2704; J7120

== ENCOUNTER 2022-12-27 15:18 | Outpatient (CLI) | payer BC, SELFPAY ==
--- NOTE | 2022-12-27 15:51 | ECHO_ITS ---
Patient Info Name: Gordo Herbert Age: 62 years : 1960 Gender: Male Ht: 74 in Wt: 300 lbs BSA: 2.72 m2 HR: 85 bpm BP: 143 / 80 mmHg Heart Rhythm: Sinus Rhythm Technical Quality: Fair Exam Date: 12/27/2022 4:02 PM Exam Location: [facility] Patient Status: Outpatient Admit Date: 12/27/2022 Staff Ordering Physician: Gabriel Kate MD Drink Box Mechanic: Juvenal San RDCS Attending Provider: Gabriel Kate MD Referring Physician: Lavinia LARA; Exam Type: CA echo doppler color flow Study Info Indications - SHORTNESS OF BREATH Complete two-dimensional, color flow and Doppler transthoracic echocardiogram is performed. Summary 1. Complete two-dimensional, color flow and Doppler transthoracic echocardiogram is performed. 2. Normal left ventricular size with borderline hypertrophy. Good systolic function of all segments with ejection fraction of 65-70%. Normal diastolic function. 3. Left atrial chamber dimension is mildly enlarged. 4. No significant valve disease. 5. Pulmonary pressure cannot be estimated on this study. 6. Technically difficult study. 7. Normal sinus rhythm. Left Ventricle Left ventricular chamber dimension is normal. Left ventricular systolic function is normal, estimated at 65-70%. There is mildly increased left ventricular wall thickness. Left ventricular septal wall motion is normal. The left ventricular diastolic function is normal. Right Ventricle Right ventricular chamber dimension is normal. Right ventricular systolic function is normal. Left Atria Left atrial chamber dimension is mildly enlarged. Right Atria Right atrial chamber dimension is normal. Aortic Valve The aortic valve is trileaflet. There is no aortic valve sclerosis. There is no aortic valve stenosis. There is no aortic valve regurgitation. Pulmonic Valve The pulmonic valve is normal. There is no pulmonic valve stenosis. There is no pulmonic regurgitation. Mitral Valve The mitral valve has normal leaflets. There is no mitral valve stenosis. There is no mitral valve regurgitation. Tricuspid Valve The tricuspid valve leaflets are normal. There is no significant tricuspid valve stenosis. There is trace tricuspid valve regurgitation. No pulmonary hypertension, estimated pulmonary arterial systolic pressure is 15 mmHg. Pericardium/Pleural The pericardium appears normal. There is no pericardial effusion. Inferior Vena Cava Normal inferior vena cava with >50% collapse upon inspiration consistent with Empty right atrial pressure, 10 mmHg. Aorta The aortic root size at the sinus of Valsalva is normal. The prox ascending aorta size is normal. Left Ventricular Outflow Tract Name Value Normal LVOT 2D LVOT Diameter 2.1 cm LVOT Doppler LVOT Peak Gradient 8 mmHg LVOT Mean Gradient 4 mmHg LVOT VTI 26 cm LVOT VTI/AV VTI Ratio 0.9 LVOT Stroke Volume 91 ml LVOT CO 6.7 l/min LVOT CI 2.5 l/min/m2 Pulmonic Valve
== END 2022-12-27 15:19 | disposition home or self-care (01) ==
LOC: ANHCARD 15:19
PROVIDERS: PCP Family Medicine; Visit Provider Family Medicine
DX: I51.89 Other ill-defined heart diseases (principal)
CPT/HCPCS: 93306

== ENCOUNTER 2023-02-14 07:51 | Outpatient (CLI) | payer BC, SELFPAY ==
--- NOTE | ~2023-02-14 | CT_ITS ---
CT Scan of the Chest without Contrast: Clinical Indication: Abnormal findings on diagnostic imaging, COPD Technique: Contiguous sections were acquired throughout the chest without intravenous contrast. Dose reduction technique was used on this scan by utilizing automated exposure control and iterative recon struction technique. The dose-length product (DLP) was 403.83 mGy-cm. Findings: There is no evidence of any significant mediastinal, hilar or axillary lymphadenopathy. Calcified rig ht paratracheal and bilateral hilar lymph nodes are present. The mediastinal soft tissues appear norm al. There is no evidence of pleural or pericardial effusion. Scattered calcified granulomas are present. No suspicious pulmonary nodule seen. Images through the upper abdomen reveal calcified gallstones. DISH of the thoracic spine noted. Impression: No acute abnormality. Evidence of prior granulomatous disease. Reviewed, dictated and finalized at [facility]. Impression: No acute abnormality. Evidence of prior granulomatous disease.
[2023-02-14 09:12] LABS: Alveolar/Arterial O2 Gradient 31.3 mmHg; Base Excess ABG 1.5 mEq/l (+/-2.0); Carboxyhemoglobin 0.3 % THb (0-2.0); Fractional Inspired Oxygen 21 %; HCO3 ABG 24.9 mEq/l (22.0-26.0); Methemoglobin ABG 0.2 %THb (0-1.5); Oxygen Content ABG 18.4 %vol (16.0-22.0); Oxygen Saturation ABG 96.1 % (95.0-100.0); Oxyhemoglobin 94.7 % THb (90.0-100.0); PCO2 ABG 35.2 mmHg (35.0-45.0); PO2 ABG 76.3 mmHg (80.0-100.0); PO2 FiO2 Ratio Arterial Blood 3.63 %; Reduced Hemoglobin 4.8 %THb (0-5.0); Total Hemoglobin 13.8 g/dL (12.0-18.0); pH ABG 7.467 (7.350-7.450)
[2023-02-14 09:13] LABS: Device ROOM AIR; Modified Allen's Test Pass; Site Drawn RIGHT RADIAL
--- NOTE | 2023-02-14 10:21 | PCRCNOTE ---
MALU FAXED TO [facility]
--- NOTE | 2023-02-14 13:20 | P.PCNPFT_ITS ---
PFT Procedure Performed PFT Procedure Performed Spirometry with Pre/Post Bronchodilator Plethysmography (Lung Vol) Diffusing Cap (DLCO) Flow Vol Loop PFT Interpretation This is a pulmonary function test with pre and post-bronchodilator spirometry, plethysmography, diffusing capacity, and arterial blood gas. The test was performed and results interpreted in accordance with the 2019 and 2005 ATS/ERS Task Force guidelines respectively using the Global Lung Function Initiative-2012 reference equations. Patient demonstrated good effort and cooperation. Reproducibility criteria were met. The quality of the pre bronchodilator spirometry maneuver was Grade A and post bronchodilator spirometry maneuver was Grade A. Findings: Spirometry: There is decreased maximal expiratory airflow at all lung volumes with concave expiratory flow tracing. The pre bronchodilator is FVC is 3.80 L, 72% predicted. The pre bronchodilator FEV1 is 2.25 L, 56% predicted. The pre bronchodilator FEV1: FVC ratio is 59%. The post bronchodilator FVC is 4.49 L, representing an 18% increase. The post bronchodilator FEV1 is 2.79 L, representing a 24% increase. The post bronchodilator FEV1: FVC ratio 62%. Plethysmography: The total lung capacity is 7.61 L, 97% predicted. The functional residual capacity is 3.88 L, 94% predicted. The residual volume is 3.57 L, 144% predicted. Diffusing capacity: The diffusing capacity unadjusted for hemoglobin and carboxyhemoglobin is 34.9, 117% predicted. The diffusing capacity adjusted for alveolar volume is 5.22, 131% predicted. Arterial blood gas: Arterial blood gas on room air is pH of 7.47, PaCO2 35, PaO2 76. Impression: There is a moderately severe obstructive abnormality with significant improvement after inhaling a single dose of albuterol. The increase in residual volume is consistent with air trapping from an obstructive abnormality. The diffusing capacity unadjusted for hemoglobin and carboxyhemoglobin is normal and is increased when adjusted for alveolar volume. The resting room air blood gas demonstrates a uncompensated respiratory alkalosi s with a normal PaO2. There are no prior studies for comparison
--- NOTE | 2023-02-14 13:27 | WPDSIXMINUTE ---
Six Minute Walk Procedure Procedure Performed Pulmonary Stress Test (6 min walk) Six Minute Walk Six Minute Walk: This is a 6 minute walk test. The test was performed and interpreted in accordance with the 2014 ERS/ATS task force guidelines. Findings: The patient's resting room air oxygen saturation measured by pulse oximetry was 91% and heart rate was 81 bpm. Patient ambulated for 274 meters and oxygen saturation remained 92 to 95%. Heart rate at the end of the study was 123 bpm. The patient did not qualify for supplemental oxygen at rest or with ambulation. There are no prior studies for comparison.
== END 2023-02-14 07:52 | disposition home or self-care (01) ==
LOC: ANHPFT 07:52
PROVIDERS: PCP Family Medicine; Visit Provider Internal Medicine Pulmonary Disease
DX: J44.9 Chronic obstructive pulmonary disease, unspecified (principal); R91.1 Solitary pulmonary nodule; R93.89 Abnormal findings on diagnostic imaging of other specified body structures; J40 Bronchitis, not specified as acute or chronic; Z72.0 Tobacco use; R06.00 Dyspnea, unspecified
CPT/HCPCS: 36600; 71250; 82375; 82805; 83050; 94060; 94618; 94726; 94729

== ENCOUNTER 2023-04-27 08:04 | Outpatient (CLI) | payer BC, SELFPAY ==
[2023-05-01 09:44] LABS: Alpha-1-Antitrypsin, QN 135 mg/dL (83-199)
== END 2023-04-27 08:05 | disposition home or self-care (01) ==
LOC: ANHLAB 08:05
PROVIDERS: PCP Family Medicine; Visit Provider Internal Medicine Pulmonary Disease
DX: E88.01 Alpha-1-antitrypsin deficiency (principal)
CPT/HCPCS: 36415; 82103

== ENCOUNTER → 2023-07-17 12:20 | Outpatient (CLI) | payer BC, SELFPAY ==
--- NOTE | ~2023-07-17 | XR_ITS ---
Right Knee Technique: AP, lateral, and oblique views were obtained. Clinical History: Arthritis Findings: No fracture or dislocation is seen. There is advanced tricompartmental osteophytosis, joint space narrowing and osteophyte formation.. Large joint effusion is seen. Impression: Severe tricompartmental osteoarthritis. Large joint effusion. Reviewed, dictated and finalized at location . [facility] Impression: Severe tricompartmental osteoarthritis. Large joint effusion.
== END ==
LOC: EXPTRAD 12:22
PROVIDERS: PCP Family Medicine; Visit Provider Family Medicine
DX: M17.11 Unilateral primary osteoarthritis, right knee (principal); M25.461 Effusion, right knee
CPT/HCPCS: 73562

== ENCOUNTER 2024-02-15 08:59 | Outpatient (CLI) | payer OTHER, SELFPAY ==
--- NOTE | ~2024-02-15 | CT_ITS ---
CT Scan of the Chest without Contrast: Clinical Indication: Lung cancer screening, nicotine dependence Technique: Contiguous sections were acquired throughout the chest without intravenous contrast. Dose reduction technique was used on this scan by utilizing automated exposure control and iterative recon struction technique. The dose-length product (DLP) was 585.43 mGy-cm. COMPARISON: 02/13/2023 Findings: There is no evidence of any significant mediastinal, hilar or axillary lymphadenopathy. Prominent frandy cified mediastinal lymph nodes are present. Mild coronary artery calcification are present. There is no evidence of pleural or pericardial effusion. Multiple calcified granulomas are present. There is probable scarring or atelectasis in the anteromed ial right upper lobe. Images through the upper abdomen reveal calcified gallstones. Impression: Lung RADS 2: Benign appearance. 12 month follow-up screening CT advised. Reviewed, dictated and finalized at [facility]. Impression: Lung RADS 2: Benign appearance. 12 month follow-up screening CT advised.
== END 2024-02-15 09:00 | disposition home or self-care (01) ==
PROVIDERS: PCP Family Medicine; Visit Provider Internal Medicine Pulmonary Disease
DX: Z12.2 Encounter for screening for malignant neoplasm of respiratory organs (principal); Z87.891 Personal history of nicotine dependence
CPT/HCPCS: 71271